=== PATIENT | female | born 1965 ===

== ENCOUNTER → 2022-01-23 09:02 | Outpatient (BNVA) | payer MEDICAID, SELFPAY | PROVIDERS: PCP Family Medicine; Visit Provider Psychiatry & Neurology Neurology | DX: G43.709 Chronic migraine without aura, not intractable, without status migrainosus (principal); G47.9 Sleep disorder, unspecified; G25.81 Restless legs syndrome; R06.83 Snoring | CPT/HCPCS: 99202 ==

== ENCOUNTER → 2022-03-27 09:11 | Outpatient (BNVA) | payer MEDICAID, SELFPAY | PROVIDERS: PCP Internal Medicine; Visit Provider Nurse Practitioner Family | DX: G43.709 Chronic migraine without aura, not intractable, without status migrainosus (principal); G25.81 Restless legs syndrome; R06.83 Snoring | CPT/HCPCS: 99212 ==

== ENCOUNTER → 2022-07-04 09:31 | Outpatient (BNVA) | payer MEDICAID, SELFPAY | PROVIDERS: PCP Internal Medicine; Visit Provider Nurse Practitioner Family | DX: E89.0 Postprocedural hypothyroidism (principal); G43.709 Chronic migraine without aura, not intractable, without status migrainosus; Z76.89 Persons encountering health services in other specified circumstances | CPT/HCPCS: 99212 ==